=== PATIENT | male | born 1950 | race Caucasian/White ===

== ENCOUNTER → 2022-06-17 | Outpatient (REF) | payer OTHER | LOC: M LAB REF 16:26 | PROVIDERS: ATTEND Ophthalmology | DX: L98.9 Disorder of the skin and subcutaneous tissue, unspecified (principal) ==

== ENCOUNTER → 2022-07-08 | Outpatient (CLI) | payer OTHER | LOC: M RAD 08:36 | PROVIDERS: ATTEND Internal Medicine Pulmonary Disease | DX: R06.00 Dyspnea, unspecified (principal) ==

== ENCOUNTER → 2022-09-15 | Outpatient (CLI) | payer BC, OTHER | LOC: M PLAIMG 10:42 | PROVIDERS: ATTEND Internal Medicine Pulmonary Disease | DX: R91.8 Other nonspecific abnormal finding of lung field (principal) ==

== ENCOUNTER → 2022-10-11 | Outpatient (CLI) | payer BC, OTHER | LOC: M PLARAD 12:45 | PROVIDERS: ATTEND Internal Medicine Pulmonary Disease | DX: R91.8 Other nonspecific abnormal finding of lung field (principal) | CPT/HCPCS: 78815; A9552 ==

== ENCOUNTER → 2023-03-21 | Outpatient (CLI) | payer MEDICARE, OTHER | LOC: M PLAIMG 10:31 | PROVIDERS: ATTEND Internal Medicine Pulmonary Disease | DX: R91.8 Other nonspecific abnormal finding of lung field (principal) ==

== ENCOUNTER → 2023-04-21 | Outpatient (CLI) | payer OTHER ==
[~2023-04-21] MED LIST: ALBU8.5H INH; ATOR80TA59 PO; CHLO125TA PO; LISI30TA4 PO; METF750T36 PO; OMEP-173 PO; POTA1TAB23 PO; SILD50TA8 PO
[2023-04-21 12:23] LABS: PLATELET COUNT, AUTOMATED 301 10^3/uL (150-450)
[2023-04-21 12:46] LABS: INR 1.04; PARTIAL THROMBOPLASTIN TIME 33.3 SECONDS (24.8-34.2); PROTHROMBIN TIME 13.3 SECONDS (12.5-14.5)
[2023-04-21 12:47] LABS: RHEUMATOID FACTOR QUANT < 3.5 IU/ML (<14)
[2023-04-21 13:03] LABS: ERYTHROCYTE SEDIMENTATION RATE 11 mm/hr (0-20)
[2023-04-26 17:09] LABS: CRYPTOCOCCUS ANTIGEN SER Negative (Negative)
[2023-04-27 08:10] LABS: ANCA-ATYPICAL <1:20 titer (Neg:<1:20); ANTI DS-DNA AB Negative (Negative); ANTINUCLEAR ANTIBODIES DIRECT Negative (Negative); ASPERGILLUS FLAVUS ABY Negative (Neg:<1:1); ASPERGILLUS FUMIGATUS ABY Negative (Neg:<1:1); ASPERGILLUS NIGER ABY Negative (Neg:<1:1); BLASTOMYCES ANTIBODY LEVEL Negative (Neg:<1:1); CYCLIC CITRULLINATED PEPTIDE 6 units (0-19); CYTOPLASMIC NEUTROP AB ANCA-C <1:20 titer (Neg:<1:20); PERINUCLEAR AB ANCA-P <1:20 titer (Neg:<1:20); RNP ANTIBODIES 0.3 AI (0.0-0.9); SJOGREN'S ANTI SS-A <0.2 AI (0.0-0.9); SJOGREN'S ANTI SS-B <0.2 AI (0.0-0.9); SMITH ANTIBODIES <0.2 AI (0.0-0.9)
== END ==
LOC: M WUC 08:35
PROVIDERS: ATTEND Internal Medicine Pulmonary Disease
DX: Z01.812 Encounter for preprocedural laboratory examination (principal); R91.8 Other nonspecific abnormal finding of lung field; R06.02 Shortness of breath; Z79.899 Other long term (current) drug therapy; J18.9 Pneumonia, unspecified organism

== ENCOUNTER 2023-04-27 06:59 | Day surgery (SDC) | payer MEDICARE, OTHER ==
[~2023-04-27] VITALS: Ht 193 cm; Wt 121.5 kg
[~2023-04-27 06:59] MED LIST changes: +ALBUTEROL SULFATE 2.5MG/0.5ML INH NEB SOLN INH ONE; +LIDOCAINE PRES-FREE 2% 10ML AMP INH ONE
[2023-04-27 07:25] VITALS: BP 182/91; TEMP 97.5; O2SAT 96
[2023-04-27] MEDS ORDERED: propofoL 200 MG/20 ML VIAL As Ordered ONE (07:49)
[2023-04-27] MEDS ORDERED: ONDANSETRON 4MG 2ML VIAL As Ordered ONE (07:49)
[2023-04-27] MEDS ORDERED: GLYCOPYRROLATE INJ 0.2 MG/ML 2 ML VIAL As Ordered ONE (07:49)
[2023-04-27] MEDS ORDERED: ROCURONIUM BROMIDE 50MG/5ML VIAL As Ordered ONE (07:49)
[2023-04-27] MEDS ORDERED: SUGAMMADEX SODIUM 500 MG/5 ML VIAL (BRIDION) As Ordered ONE (07:49)
[2023-04-27] MEDS ORDERED: LIDOCAINE 2% 100MG/5ML SDV (FOR ANES.) As Ordered ONE (07:49)
[2023-04-27] MEDS ORDERED: fentaNYL 100 MCG/2 ML INJECTION As Ordered ONE (07:50)
[2023-04-27] MEDS ORDERED: LR 1,000 ML IV SCH (08:00)
[2023-04-27] MEDS ORDERED: CETACAINE SPRAY 5GM As Ordered ONE (08:58)
[2023-04-27] MEDS ORDERED: EPINEPHrine 1MG/10ML SYRINGE 1.5IN As Ordered ONE (10:58)
[2023-05-02] MEDS ORDERED: D31000CA4 PO (08:44)
== END 2023-04-27 09:57 | disposition home or self-care (01) ==
LOC: M SDC 06:59
PROVIDERS: ATTEND Internal Medicine Pulmonary Disease
DX: R91.8 Other nonspecific abnormal finding of lung field (principal); Z53.8 Procedure and treatment not carried out for other reasons

== ENCOUNTER → 2023-05-10 | Outpatient (CLI) | payer OTHER, MEDICARE ==
[~2023-05-10] MED LIST changes: -ALBUTEROL SULFATE 2.5MG/0.5ML INH NEB SOLN INH ONE; +D31000CA4 PO; -LIDOCAINE PRES-FREE 2% 10ML AMP INH ONE
== END ==
LOC: M PLAIMG 09:43
PROVIDERS: ATTEND Internal Medicine Pulmonary Disease
DX: R91.8 Other nonspecific abnormal finding of lung field (principal)

== ENCOUNTER → 2023-11-07 | Outpatient (CLI) | payer OTHER, MEDICARE | LOC: M RAD 09:46 | PROVIDERS: ATTEND Internal Medicine Pulmonary Disease | DX: R91.8 Other nonspecific abnormal finding of lung field (principal) ==

== ENCOUNTER → 2023-12-22 | Outpatient (CLI) | payer MEDICARE, OTHER | LOC: M PLAIMG 07:49 | PROVIDERS: ATTEND Internal Medicine Pulmonary Disease | DX: R91.8 Other nonspecific abnormal finding of lung field (principal) ==

== ENCOUNTER → 2023-12-28 | Outpatient (CLI) | payer OTHER, MEDICARE | LOC: M EKG 08:40 | PROVIDERS: ATTEND Anesthesiology | DX: Z01.818 Encounter for other preprocedural examination (principal); I44.0 Atrioventricular block, first degree; R94.31 Abnormal electrocardiogram [ECG] [EKG] ==

== ENCOUNTER 2024-01-04 05:51 | Day surgery (SDC) | payer OTHER, MEDICARE ==
[~2024-01-04] VITALS: Ht 193 cm; Wt 119.8 kg
[2024-01-04] MEDS ORDERED: GLYCOPYRROLATE INJ 0.2 MG/ML 2 ML VIAL As Ordered ONE (07:03)
[2024-01-04] MEDS ORDERED: SUGAMMADEX SODIUM 500 MG/5 ML VIAL (BRIDION) As Ordered ONE (07:03)
[2024-01-04] MEDS ORDERED: LIDOCAINE 2% 100MG/5ML SDV (FOR ANES.) As Ordered ONE (07:03)
[2024-01-04] MEDS ORDERED: fentaNYL 100 MCG/2 ML INJECTION As Ordered ONE (07:03)
[2024-01-04] MEDS ORDERED: ONDANSETRON 4MG 2ML VIAL As Ordered ONE (07:03)
[2024-01-04] MEDS ORDERED: ROCURONIUM BROMIDE 50MG/5ML VIAL As Ordered ONE (07:03)
[2024-01-04] MEDS ORDERED: propofoL 200 MG/20 ML VIAL As Ordered ONE (07:03)
[2024-01-04] MEDS: LIDOCAINE PRES-FREE 2% 10ML AMP INH ONE (07:11)
[2024-01-04] MEDS: LR 1,000 ML IV SCH (07:11)
[2024-01-04] MEDS: ALBUTEROL SULFATE 2.5MG/0.5ML INH NEB SOLN INH ONE (07:11)
[2024-01-04] MEDS: CETACAINE SPRAY 5GM As Ordered ONE (07:52)
[2024-01-04] MEDS: EPINEPHrine 1MG/10ML SYRINGE 1.5IN As Ordered ONE (08:14)
[2024-01-04] MEDS: THROMBIN 5,000 UNITS VIAL As Ordered ONE (08:43)
[2024-01-04] MEDS ORDERED: ONDANSETRON 4MG 2ML VIAL IV PRN (08:50)
[2024-01-04] MEDS ORDERED: fentaNYL 100 MCG/2 ML INJECTION IV PRN (08:50)
[2024-01-04] MEDS ORDERED: oxyCODONE 5MG TAB PO PRN (08:50)
[2024-01-04] MEDS ORDERED: ePHEDrine SULFATE 25 MG/5 ML(5MG/ML) SYRINGE As Ordered ONE (09:29)
[2024-01-04 11:24] VITALS: BP 184/89; TEMP 98.2; O2SAT 96
== END 2024-01-04 11:24 | disposition home or self-care (01) ==
LOC: M SDC 05:51
PROVIDERS: ATTEND Internal Medicine Pulmonary Disease
DX: J84.112 Idiopathic pulmonary fibrosis (principal); J84.111 Idiopathic interstitial pneumonia, not otherwise specified; E11.9 Type 2 diabetes mellitus without complications; R06.00 Dyspnea, unspecified; I10 Essential (primary) hypertension; E78.00 Pure hypercholesterolemia, unspecified; Z79.899 Other long term (current) drug therapy; Z79.84 Long term (current) use of oral hypoglycemic drugs; Z90.89 Acquired absence of other organs; K21.9 Gastro-esophageal reflux disease without esophagitis
CPT/HCPCS: 31624; 31627; 31628; 31632; 31653; 71045; 76000; 87070; 87102; 87116; 87205; 87206; 88305; 93005; C1601; J0171; J1100; J1596; J2405; J3010

== ENCOUNTER → 2024-07-12 | Outpatient (CLI) | payer OTHER | LOC: M RAD 13:03 | PROVIDERS: ATTEND Nurse Practitioner Family | DX: R06.02 Shortness of breath (principal); R91.8 Other nonspecific abnormal finding of lung field ==